=== PATIENT | male | born 1930 | race Caucasian/White ===

== ENCOUNTER 2017-12-01 15:51 | Inpatient (IN) | payer MEDICARE, MEDICAID ==
[~2017-12-01] VITALS: Ht 167.6 cm; Wt 59.9 kg
[~2017-12-01 15:51] MED LIST: CALC-816 PO; COR3 PO; LEVO88TA7 PO; LOSA25TA12 PO; MEGE40TA27 GT; MEMA5TAB15 PO; OMEP20CA10 PO; RENAVITE PO
[2017-12-01 19:08] LABS: BASOPHILS % 0.5 % (0.0-2.0); EOSINOPHILS % 0.6 % (0.0-5.0); HEMATOCRIT. 30.6 % (42.0-52.0); LYMPHOCYTES % 10.4 % (20.0-50.0); MEAN CORPUSCULAR HEMOGLOBIN 30.9 pg (28.0-32.0); MEAN CORPUSCULAR VOLUME 94.4 fL (80.0-94.0); MEAN PLATELET VOLUME 7.3 fl (7.4-10.4); MONOCYTES % 7.8 % (2.0-8.0); NEUTROPHILS % 80.7 % (40.0-76.0); PLATELET 336 x1000/uL (130-400); RED BLOOD CELL COUNT 3.24 mill/uL (4.7-6.1); RED CELL DISTRIBUTION WIDTH 14.8 % (11.6-14.6)
[2017-12-01 19:16] LABS: PROTHROMBIN TIME 10.7 sec (9.4-11.6)
[2017-12-01 19:26] LABS: CARBON DIOXIDE 21 mEq/L (21-32); CHLORIDE 99 mEq/L (98-107); TROPONIN I 0.02 ng/mL (0.00-0.04)
[2017-12-01] MEDS ORDERED: ONDANSETRON HCL 4MG/2ML VIAL IV PRN (22:00)
[2017-12-01] MEDS ORDERED: DIPHENHYDRAMINE 50MG/ML VIAL IV PRN (22:00)
[2017-12-01] MEDS ORDERED: ACETAMINOPHEN 325MG TABLET PO PRN (22:00)
[2017-12-01] MEDS ORDERED: HYDROCODONE/APAP 7.5/325MG 1 TAB TABLET PO PRN (22:00)
[2017-12-01] MEDS ORDERED: IPRATROPIUM/ALBUTEROL 0.5-3(2.5)MG/3ML NEB INH PRN (22:00)
[2017-12-01] MEDS ORDERED: DOCUSATE SODIUM 100MG CAPSULE PO PRN (22:00)
[2017-12-01] MEDS ORDERED: LEVOFLOXACIN 500MG PREMIX 100 ML IV SCH (22:00)
[2017-12-01] MEDS ORDERED: VANCOMYCIN IV SCH (22:00)
[2017-12-01] MEDS ORDERED: CEFTAZIDIME PENTAHYDRATE IV SCH (22:00)
[2017-12-01] MEDS ORDERED: MAGNESIUM/ALUMINUM HYDROXIDE/SIMETHICONE 30ML UDC PO PRN (22:00)
[2017-12-01] MEDS ORDERED: [UNRECOGNIZED DRUG - OTHER] IV SCH (22:00)
[2017-12-01] MEDS ORDERED: MORPHINE SULFATE 4 MG/ML CPJ (NOT FOR IM USE) IV PRN (22:00)
[2017-12-01] MEDS ORDERED: SUCCINYLCHOLINE CHLORIDE 200MG/10ML VIAL IV ONE (22:40)
[2017-12-01] MEDS ORDERED: NA PHOS,M-B/NA PHOS,DI-BA ENEMA 118ML PR PRN (23:00)
[2017-12-02 05:31] LABS: BASOPHILS % 0.3 % (0.0-2.0); EOSINOPHILS % 0.7 % (0.0-5.0); HEMATOCRIT. 31.4 % (42.0-52.0); HEMOGLOBIN. 10.3 g/dL (14.0-18.0); LYMPHOCYTES % 9.1 % (20.0-50.0); MEAN CORPUSCULAR HEMOGLOBIN 30.8 pg (28.0-32.0); MEAN PLATELET VOLUME 7.5 fl (7.4-10.4); MONOCYTES % 8.7 % (2.0-8.0); NEUTROPHILS % 81.2 % (40.0-76.0); PLATELET 305 x1000/uL (130-400); RED BLOOD CELL COUNT 3.34 mill/uL (4.7-6.1); RED CELL DISTRIBUTION WIDTH 14.5 % (11.6-14.6)
[2017-12-02 05:44] LABS: CARBON DIOXIDE 23 mEq/L (21-32); CHLORIDE 102 mEq/L (98-107); HDL CHOLESTEROL 45 mg/dL (40-59); LDL CHOLESTEROL 101 mg/dL (5-100); PHOSPHORUS 3.9 mg/dL (2.5-4.9); T4 FREE 1.31 ng/dL (0.76-1.46)
[2017-12-02] MEDS ORDERED: METRONIDAZOLE 500 MG PREMIX 100 ML IV NR (06:02)
[2017-12-02] MEDS ORDERED: LEVOFLOXACIN 500MG PREMIX 100 ML IV NR (06:03)
[2017-12-02] MEDS ORDERED: INSASP SUBCUT (16:10)
[2017-12-02] MEDS ORDERED: LORAZEPAM 2MG/ML CPJ IV PRN (16:24)
[2017-12-02 16:33] VITALS: BP 127/58
[2017-12-02] MEDS ORDERED: DEXTROSE 50% WATER 50ML SYRINGE IV PRN (17:45)
[2017-12-02] MEDS: ENOXAPARIN 30MG/0.3ML SYR SUBCUT SCH (18:32)
[2017-12-02] MEDS: ASPIRIN 81MG EC TABLET PO SCH (18:32)
[2017-12-02] MEDS: CALCIUM CARBONATE/VITAMIN D3 500MG TABLET PO SCH (18:33)
[2017-12-02] MEDS: CARVEDILOL 3.125 MG TABLET PO SCH (18:33)
[2017-12-02] MEDS: INSULIN LISPRO 100 UNITS/ML SUBCUT SCH ×2 (18:35→20:56)
[2017-12-02] MEDS: METRONIDAZOLE 500 MG PREMIX 100 ML IV SCH (18:35)
[2017-12-02] MEDS: GUAIFENESIN 200MG/10ML SUGAR FREE UDC PO PRN (18:36)
[2017-12-02] MEDS: BLOOD SUGAR DIAGNOSTIC STRIP TEST SCH ×2 (18:37→20:48)
[2017-12-02 20:00] VITALS: BP 150/93
[2017-12-03] VITALS: BP 150/79
[2017-12-03 04:00] VITALS: BP 161/94
[2017-12-03] MEDS: METRONIDAZOLE 500 MG PREMIX 100 ML IV SCH ×3 (05:07→20:25)
[2017-12-03] MEDS: CLONIDINE 0.1MG TABLET PO PRN (05:32)
[2017-12-03 06:32] LABS: BASOPHILS % 0.4 % (0.0-2.0); EOSINOPHILS % 0.6 % (0.0-5.0); HEMATOCRIT. 30.4 % (42.0-52.0); LYMPHOCYTES % 12.3 % (20.0-50.0); MEAN CORPUSCULAR HEMOGLOBIN 30.9 pg (28.0-32.0); MONOCYTES % 8.8 % (2.0-8.0); NEUTROPHILS % 77.9 % (40.0-76.0); PLATELET 336 x1000/uL (130-400); RED BLOOD CELL COUNT 3.23 mill/uL (4.7-6.1); RED CELL DISTRIBUTION WIDTH 14.4 % (11.6-14.6)
[2017-12-03] MEDS: BLOOD SUGAR DIAGNOSTIC STRIP TEST SCH ×4 (07:10→20:18)
[2017-12-03 08:00] VITALS: BP 109/56
[2017-12-03] MEDS: LOSARTAN POTASSIUM 25 MG TABLET PO SCH (09:00)
[2017-12-03] MEDS: CARVEDILOL 3.125 MG TABLET PO SCH ×2 (09:00→17:23)
[2017-12-03] MEDS: OMEPRAZOLE 20MG CAPSULE EXTENDED RELEASE PO SCH (11:02)
[2017-12-03] MEDS: MEGESTROL ACETATE 40MG TABLET PO SCH (11:02)
[2017-12-03] MEDS: MEMANTINE HCL 5MG TABLET PO SCH (11:02)
[2017-12-03] MEDS: LEVOTHYROXINE SODIUM 88MCG TABLET PO SCH (11:03)
[2017-12-03] MEDS: CALCIUM CARBONATE/VITAMIN D3 500MG TABLET PO SCH ×2 (11:03→17:22)
[2017-12-03] MEDS: ASPIRIN 81MG EC TABLET PO SCH (11:04)
[2017-12-03] MEDS: INSULIN LISPRO 100 UNITS/ML SUBCUT SCH ×4 (11:09→20:24)
[2017-12-03 12:00] VITALS: BP 127/49
[2017-12-03] MEDS: GUAIFENESIN 200MG/10ML SUGAR FREE UDC PO PRN (12:56)
[2017-12-03] MEDS ORDERED: POTASSIUM CHLORIDE 20MEQ TABLET SR PO NR (13:30)
[2017-12-03] MEDS: FOLIC ACID/VITAMIN B COMP W-C TABLET PO SCH (14:49)
[2017-12-03 16:00] VITALS: BP 125/63
[2017-12-03 16:43] LABS: PHOSPHORUS 3.7 mg/dL (2.5-4.9)
[2017-12-03] MEDS: ENOXAPARIN 30MG/0.3ML SYR SUBCUT SCH (17:24)
[2017-12-03 20:00] VITALS: BP 117/70
[2017-12-04] VITALS (8 sets, daily range): BP systolic 121–174; BP diastolic 55–88
[2017-12-04] MEDS ORDERED: LEVOFLOXACIN 500MG PREMIX 100 ML IV SCH (06:00)
[2017-12-04] MEDS: OMEPRAZOLE 20MG CAPSULE EXTENDED RELEASE PO SCH (06:34)
[2017-12-04] MEDS: BLOOD SUGAR DIAGNOSTIC STRIP TEST SCH ×4 (06:36→21:00)
[2017-12-04] MEDS: INSULIN LISPRO 100 UNITS/ML SUBCUT SCH ×4 (06:36→20:35)
[2017-12-04] MEDS: LEVOTHYROXINE SODIUM 88MCG TABLET PO SCH (06:52)
[2017-12-04 07:03] LABS: BASOPHILS % 0.4 % (0.0-2.0); EOSINOPHILS % 2.5 % (0.0-5.0); HEMATOCRIT. 28.6 % (42.0-52.0); HEMOGLOBIN. 9.8 g/dL (14.0-18.0); LYMPHOCYTES % 10.8 % (20.0-50.0); MEAN CORPUSCULAR HEMOGLOBIN 32.4 pg (28.0-32.0); MEAN CORPUSCULAR VOLUME 95.1 fL (80.0-94.0); MEAN PLATELET VOLUME 7.7 fl (7.4-10.4); MONOCYTES % 10.9 % (2.0-8.0); NEUTROPHILS % 75.4 % (40.0-76.0); PLATELET 330 x1000/uL (130-400); RED BLOOD CELL COUNT 3.01 mill/uL (4.7-6.1); RED CELL DISTRIBUTION WIDTH 14.6 % (11.6-14.6)
[2017-12-04] MEDS: FOLIC ACID/VITAMIN B COMP W-C TABLET PO SCH (09:33)
[2017-12-04] MEDS: CARVEDILOL 3.125 MG TABLET PO SCH ×2 (09:33→18:33)
[2017-12-04] MEDS: MEMANTINE HCL 5MG TABLET PO SCH (09:33)
[2017-12-04] MEDS: ASPIRIN 81MG EC TABLET PO SCH (09:34)
[2017-12-04] MEDS: METRONIDAZOLE 500 MG PREMIX 100 ML IV SCH ×2 (09:34→20:28)
[2017-12-04] MEDS: LOSARTAN POTASSIUM 25 MG TABLET PO SCH (09:34)
[2017-12-04] MEDS: CALCIUM CARBONATE/VITAMIN D3 500MG TABLET PO SCH ×2 (09:34→18:32)
[2017-12-04] MEDS: MEGESTROL ACETATE 40MG TABLET PO SCH (09:37)
[2017-12-04] MEDS ORDERED: INSULIN DETEMIR UD 100 UNITS/ML SYR SUBCUT SCH (10:00)
[2017-12-04] MEDS: INSULIN GLARGINE UD 100 UNITS/ML SYR SUBCUT SCH (12:20)
[2017-12-04] MEDS: ENOXAPARIN 30MG/0.3ML SYR SUBCUT SCH (18:34)
[2017-12-04] MEDS: CLONIDINE 0.1MG TABLET PO PRN (23:42)
[2017-12-05 01:00] VITALS: BP 158/67
[2017-12-05 04:00] VITALS: BP 113/53
[2017-12-05] MEDS: LEVOTHYROXINE SODIUM 88MCG TABLET PO SCH (06:22)
[2017-12-05] MEDS: INSULIN LISPRO 100 UNITS/ML SUBCUT SCH ×3 (06:23→18:18)
[2017-12-05] MEDS: BLOOD SUGAR DIAGNOSTIC STRIP TEST SCH ×3 (06:23→17:10)
[2017-12-05 06:38] LABS: BASOPHILS % 0.7 % (0.0-2.0); EOSINOPHILS % 1.6 % (0.0-5.0); HEMATOCRIT. 29.4 % (42.0-52.0); HEMOGLOBIN. 9.9 g/dL (14.0-18.0); LYMPHOCYTES % 16.7 % (20.0-50.0); MEAN CORPUSCULAR HEMOGLOBIN 31.6 pg (28.0-32.0); MEAN PLATELET VOLUME 7.6 fl (7.4-10.4); MONOCYTES % 10.3 % (2.0-8.0); NEUTROPHILS % 70.7 % (40.0-76.0); PLATELET 367 x1000/uL (130-400); RED BLOOD CELL COUNT 3.13 mill/uL (4.7-6.1); RED CELL DISTRIBUTION WIDTH 14.5 % (11.6-14.6)
[2017-12-05] MEDS: LOSARTAN POTASSIUM 25 MG TABLET PO SCH (08:07)
[2017-12-05] MEDS: CARVEDILOL 3.125 MG TABLET PO SCH ×2 (08:07→17:00)
[2017-12-05] MEDS: MEGESTROL ACETATE 40MG TABLET PO SCH (08:22)
[2017-12-05] MEDS: ASPIRIN 81MG EC TABLET PO SCH (08:22)
[2017-12-05] MEDS: MEMANTINE HCL 5MG TABLET PO SCH (08:22)
[2017-12-05] MEDS: CALCIUM CARBONATE/VITAMIN D3 500MG TABLET PO SCH ×2 (08:22→18:09)
[2017-12-05 08:23] VITALS: BP 101/48
[2017-12-05] MEDS: FOLIC ACID/VITAMIN B COMP W-C TABLET PO SCH (08:23)
[2017-12-05] MEDS ORDERED: METRONIDAZOLE 500MG TABLET PO SCH (09:00)
[2017-12-05] MEDS ORDERED: FAMOTIDINE 20MG TABLET PO SCH (09:00)
[2017-12-05] MEDS: INSULIN GLARGINE UD 100 UNITS/ML SYR SUBCUT SCH (10:13)
[2017-12-05 12:00] VITALS: BP 121/73
[2017-12-05 12:31] VITALS: BP 121/73
[2017-12-05 16:00] VITALS: BP 97/78
[2017-12-05] MEDS: ENOXAPARIN 30MG/0.3ML SYR SUBCUT SCH (18:09)
[2017-12-06] MEDS ORDERED: LEVOFLOXACIN 500MG TABLET PO SCH (11:00)
== END 2017-12-05 18:30 | disposition home or self-care (01) | DRG 177 ==
LOC: ER 17:05 → 8WST 21:30 → EDBEDREQ 21:33 → EDBEDREQTM 21:33 → ENRESERV 12-02 14:40
PROVIDERS: ADMIT Internal Medicine; ATTEND Internal Medicine
PROC: 3E1M39Z Irrigation of Peritoneal Cavity using Dialysate, Percutaneous Approach (ICD-10-PCS; principal; 2017-12-01)
PROC: 3E1M39Z Irrigation of Peritoneal Cavity using Dialysate, Percutaneous Approach (ICD-10-PCS; 2017-12-03)
DX: J69.0 Pneumonitis due to inhalation of food and vomit (principal); K65.2 Spontaneous bacterial peritonitis; I13.2 Hypertensive heart and chronic kidney disease with heart failure and with stage 5 chronic kidney disease, or end stage renal disease; E46 Unspecified protein-calorie malnutrition; N18.6 End stage renal disease; E11.22 Type 2 diabetes mellitus with diabetic chronic kidney disease; R65.10 Systemic inflammatory response syndrome (SIRS) of non-infectious origin without acute organ dysfunction; I50.9 Heart failure, unspecified; E03.9 Hypothyroidism, unspecified; I25.10 Atherosclerotic heart disease of native coronary artery without angina pectoris; D64.9 Anemia, unspecified; K21.9 Gastro-esophageal reflux disease without esophagitis; Z79.4 Long term (current) use of insulin; Z79.899 Other long term (current) drug therapy; Z99.2 Dependence on renal dialysis
CPT/HCPCS: 36415; 71045; 80048; 80053; 80061; 82962; 83605; 83735; 83880; 84100; 84439; 84443; 84484; 85025; 85610; 87040; 87070; 87205; 89050; 93005; 93970; 99285; J0330; J0713; J1650; J1815; J1956; J3370; J3490; J7040

== ENCOUNTER → 2018-02-28 | Outpatient (CLI) | payer MEDICARE, MEDICAID ==
[~2018-02-28] MED LIST changes: +INSASP SUBCUT; +LEVVL SUBCUT
[2018-02-28 11:12] LABS: BASOPHILS % 0.6 % (0.0-2.0); EOSINOPHILS % 2.6 % (0.0-5.0); HEMATOCRIT. 29.5 % (42.0-52.0); HEMOGLOBIN. 10.2 g/dL (14.0-18.0); LYMPHOCYTES % 13.1 % (20.0-50.0); MEAN CORPUSCULAR HEMOGLOBIN 32.9 pg (28.0-32.0); MEAN CORPUSCULAR VOLUME 95.4 fL (80.0-94.0); MEAN PLATELET VOLUME 6.9 fl (7.4-10.4); MONOCYTES % 7.2 % (2.0-8.0); NEUTROPHILS % 76.5 % (40.0-76.0); PLATELET 460 x1000/uL (130-400); RED CELL DISTRIBUTION WIDTH 15.1 % (11.6-14.6)
== END | disposition home or self-care (01) ==
LOC: LAB 10:21
PROVIDERS: ATTEND Internal Medicine Nephrology
DX: E11.22 Type 2 diabetes mellitus with diabetic chronic kidney disease (principal); N18.6 End stage renal disease
CPT/HCPCS: 36415; 80048; 85025

== ENCOUNTER 2018-07-12 11:59 | Emergency (ER) | payer MEDICARE, MEDICAID ==
[~2018-07-12] VITALS: Ht 152.4 cm; Wt 59.0 kg
[2018-07-12] MEDS ORDERED: FLUORESCEIN SODIUM 1MG/STRIP LEFTEYE ONE (12:30)
[2018-07-12] MEDS ORDERED: ACETAMINOPHEN 325MG TABLET PO ONE (13:15)
[2018-07-12 13:33] VITALS: BP 113/67
== END 2018-07-12 13:34 | disposition home or self-care (01) ==
LOC: ER 12:26
DX: H57.12 Ocular pain, left eye (principal); E11.22 Type 2 diabetes mellitus with diabetic chronic kidney disease; I12.0 Hypertensive chronic kidney disease with stage 5 chronic kidney disease or end stage renal disease; N18.6 End stage renal disease; E03.9 Hypothyroidism, unspecified; Z79.899 Other long term (current) drug therapy; Z79.4 Long term (current) use of insulin; Z99.2 Dependence on renal dialysis
CPT/HCPCS: 99283

== ENCOUNTER 2018-10-25 14:27 | Inpatient (IN) | payer MEDICARE, MEDICAID ==
[~2018-10-25] VITALS: Ht 152.4 cm; Wt 58.5 kg
[~2018-10-25 14:27] MED LIST changes: +POTA20TA82 MT
[2018-10-25 16:15] VITALS: BP 153/87
[2018-10-25] MEDS ORDERED: SEVE800T8 MT (17:40)
[2018-10-25] MEDS: SODIUM CHLORIDE 0.9% 1,000 ML IV SCH (18:00)
[2018-10-25] MEDS ORDERED: ACETAMINOPHEN 325MG TABLET PO PRN (18:00)
[2018-10-25] MEDS ORDERED: CLONIDINE 0.2MG TABLET PO PRN (18:00)
[2018-10-25 19:53] LABS: HEMATOCRIT. 31.5 % (42.0-52.0); MEAN CORPUSCULAR HEMOGLOBIN 33.8 pg (28.0-32.0); MEAN CORPUSCULAR VOLUME 96.4 fL (80.0-94.0); MEAN PLATELET VOLUME 6.9 fl (7.4-10.4); PLATELET 526 x1000/uL (130-400); RED BLOOD CELL COUNT 3.27 mill/uL (4.7-6.1); RED CELL DISTRIBUTION WIDTH 14.7 % (11.6-14.6)
[2018-10-25 20:00] VITALS: BP 131/59
[2018-10-25] MEDS ORDERED: DEXTROSE 50% WATER 50ML SYRINGE IV PRN (20:00)
[2018-10-25 20:47] LABS: PLATELET ESTIMATE INCREASED
[2018-10-25] MEDS: BLOOD SUGAR DIAGNOSTIC STRIP TEST SCH (21:12)
[2018-10-25] MEDS: INSULIN LISPRO 100 UNITS/ML SUBCUT SCH (21:18)
[2018-10-25] MEDS ORDERED: POTASSIUM CHLORIDE 20MEQ TABLET SR PO NR (21:30)
[2018-10-25] MEDS: ENOXAPARIN 30MG/0.3ML SYR SUBCUT SCH (21:54)
[2018-10-26] VITALS: BP 149/80
[2018-10-26 04:00] VITALS: BP 151/61
[2018-10-26] MEDS: LEVOTHYROXINE SODIUM 88MCG TABLET PO SCH (06:22)
[2018-10-26] MEDS: SEVELAMER CARBONATE 800 MG TABLET PO SCH ×3 (06:22→17:20)
[2018-10-26] MEDS: OMEPRAZOLE 20MG CAPSULE EXTENDED RELEASE PO SCH (06:23)
[2018-10-26] MEDS: BLOOD SUGAR DIAGNOSTIC STRIP TEST SCH ×4 (06:32→23:53)
[2018-10-26 07:08] LABS: HEMATOCRIT. 31.5 % (42.0-52.0); HEMOGLOBIN. 10.8 g/dL (14.0-18.0); MEAN CORPUSCULAR HEMOGLOBIN 33.4 pg (28.0-32.0); MEAN CORPUSCULAR VOLUME 97.4 fL (80.0-94.0); MEAN PLATELET VOLUME 7.2 fl (7.4-10.4); PLATELET 501 x1000/uL (130-400); RED BLOOD CELL COUNT 3.23 mill/uL (4.7-6.1); RED CELL DISTRIBUTION WIDTH 14.8 % (11.6-14.6)
[2018-10-26 07:38] LABS: T4 FREE 0.99 ng/dL (0.76-1.46)
[2018-10-26 08:00] VITALS: BP 143/72
[2018-10-26] MEDS: MEGESTROL ACETATE 40MG TABLET PO SCH (09:00)
[2018-10-26] MEDS: INSULIN LISPRO 100 UNITS/ML SUBCUT SCH ×3 (09:00→17:50)
[2018-10-26] MEDS: POTASSIUM CHLORIDE 20MEQ TABLET SR PO SCH (09:00)
[2018-10-26] MEDS: CALCIUM CARBONATE/VITAMIN D3 500MG TABLET PO SCH ×2 (09:00→17:00)
[2018-10-26 12:00] VITALS: BP 168/74
[2018-10-26 12:51] LABS: PLATELET ESTIMATE INCREASED
[2018-10-26 16:00] VITALS: BP 165/69
[2018-10-26] MEDS: ENOXAPARIN 30MG/0.3ML SYR SUBCUT SCH (17:00)
[2018-10-26] MEDS: SODIUM CHLORIDE 0.9% 1,000 ML IV SCH (18:13)
[2018-10-26 20:00] VITALS: BP 140/58
[2018-10-27] VITALS: BP 163/86
[2018-10-27] MEDS: INSULIN LISPRO 100 UNITS/ML SUBCUT SCH ×5 (00:03→22:49)
[2018-10-27 04:00] VITALS: BP 169/90
[2018-10-27] MEDS: OMEPRAZOLE 20MG CAPSULE EXTENDED RELEASE PO SCH (06:37)
[2018-10-27] MEDS: SEVELAMER CARBONATE 800 MG TABLET PO SCH ×3 (06:37→17:20)
[2018-10-27] MEDS: LEVOTHYROXINE SODIUM 88MCG TABLET PO SCH (06:37)
[2018-10-27] MEDS: BLOOD SUGAR DIAGNOSTIC STRIP TEST SCH ×4 (06:43→22:43)
[2018-10-27 08:00] VITALS: BP 124/76
[2018-10-27] MEDS: CALCIUM CARBONATE/VITAMIN D3 500MG TABLET PO SCH ×2 (08:38→17:00)
[2018-10-27] MEDS: POTASSIUM CHLORIDE 20MEQ TABLET SR PO SCH (08:38)
[2018-10-27] MEDS: MEGESTROL ACETATE 40MG TABLET PO SCH (08:38)
[2018-10-27 12:00] VITALS: BP 116/63
[2018-10-27] MEDS: SODIUM CHLORIDE 0.9% 1,000 ML IV SCH (12:23)
[2018-10-27 16:00] VITALS: BP 140/64
[2018-10-27] MEDS: ENOXAPARIN 30MG/0.3ML SYR SUBCUT SCH (17:00)
[2018-10-27 20:00] VITALS: BP 157/72
[2018-10-28] VITALS: BP 172/79
[2018-10-28 04:00] VITALS: BP 167/76
[2018-10-28] MEDS: SODIUM CHLORIDE 0.9% 1,000 ML IV SCH (06:00)
[2018-10-28] MEDS: SEVELAMER CARBONATE 800 MG TABLET PO SCH ×3 (06:52→16:39)
[2018-10-28] MEDS: OMEPRAZOLE 20MG CAPSULE EXTENDED RELEASE PO SCH (06:53)
[2018-10-28] MEDS: LEVOTHYROXINE SODIUM 88MCG TABLET PO SCH (06:53)
[2018-10-28] MEDS: BLOOD SUGAR DIAGNOSTIC STRIP TEST SCH ×3 (06:57→17:20)
[2018-10-28 08:00] VITALS: BP 166/78
[2018-10-28] MEDS: POTASSIUM CHLORIDE 20MEQ TABLET SR PO SCH (08:49)
[2018-10-28] MEDS: MEGESTROL ACETATE 40MG TABLET PO SCH (08:49)
[2018-10-28] MEDS: CALCIUM CARBONATE/VITAMIN D3 500MG TABLET PO SCH ×2 (08:49→16:39)
[2018-10-28] MEDS: INSULIN LISPRO 100 UNITS/ML SUBCUT SCH ×3 (09:01→18:14)
[2018-10-28 12:00] VITALS: BP 166/77
[2018-10-28 16:29] VITALS: BP 166/77
[2018-10-28] MEDS: ENOXAPARIN 30MG/0.3ML SYR SUBCUT SCH (16:40)
== END 2018-10-28 18:11 | disposition home or self-care (01) | DRG 640 ==
LOC: 6EST 14:27
PROVIDERS: ADMIT Internal Medicine; ATTEND Internal Medicine
PROC: 3E1M39Z Irrigation of Peritoneal Cavity using Dialysate, Percutaneous Approach (ICD-10-PCS; principal; 2018-10-25)
PROC: 3E1M39Z Irrigation of Peritoneal Cavity using Dialysate, Percutaneous Approach (ICD-10-PCS; 2018-10-26)
PROC: 3E1M39Z Irrigation of Peritoneal Cavity using Dialysate, Percutaneous Approach (ICD-10-PCS; 2018-10-27)
DX: R62.7 Adult failure to thrive (principal); N18.6 End stage renal disease; E46 Unspecified protein-calorie malnutrition; I12.0 Hypertensive chronic kidney disease with stage 5 chronic kidney disease or end stage renal disease; I95.9 Hypotension, unspecified; E86.0 Dehydration; E87.6 Hypokalemia; R63.0 Anorexia; D64.9 Anemia, unspecified; E86.9 Volume depletion, unspecified; E11.22 Type 2 diabetes mellitus with diabetic chronic kidney disease; F03.90 Unspecified dementia, unspecified severity, without behavioral disturbance, psychotic disturbance, mood disturbance, and anxiety; Z79.4 Long term (current) use of insulin; Z99.2 Dependence on renal dialysis; Z88.1 Allergy status to other antibiotic agents; Z88.8 Allergy status to other drugs, medicaments and biological substances; Z68.25 Body mass index [BMI] 25.0-25.9, adult
CPT/HCPCS: 36415; 80048; 80051; 82962; 84439; 84443; 97162; J1650; J1815; J7030